=== PATIENT | male | born 1955 | race Caucasian/White ===

== ENCOUNTER → 2020-05-14 10:14 | Outpatient (CLI) | payer MEDICARE ==
--- NOTE | ~2020-05-14 | EC ---
PATIENT:HELGA DAVIS DATE OF SERVICE: 05/14/20 SEX: M MEDICAL RECORD: [id number] DATE OF : [birth year] [facility] AGE OF PATIENT: 64 ADMISSION DATE: 05/14/20 REFERRING PHYSICIAN: INTERPRETING PHYSICIAN: SAROJ ROY MD ECHOCARDIOGRAM REPORT ECHO CHARGES 4 ECHO COMPLETE Date: 05/14/20 CLINICAL DIAGNOSIS: CAD/ASSESS EF/MITRAL REGURG ECHOCARDIOGRAPHIC MEASUREMENTS (adult normal given) AC root (d.<3.7cm) 3.5 cm LV Septum d (<1.2 cm> 1.4 cm Valve Excursion 1.3 cm LV Septum (systole) 1.6 cm Left Atria (s.<4.0cm> 3.5 cm LVPW d(<1.2cm) 1.4 cm RV (d.<2.3cm) 3.6 cm LVPW (sytole) 1.8 cm LV diastole(<5.6CM) 3.6 cm MV E-F(>70mm/sec) cm LV systole 2.4 cm LVOT Diameter 1.9 cm MV exc.(>10mm) 1.2 cm Est.ejection fraction (50-75%) % DOPPLER: LVIT cm/sec A 88.0 cm/sec E 78.0 cm/sec LA cm/sec RVSP 29 mmHg LVOT 108 cm/sec AOP1/2T m/s Asc. Ao 147 cm/sec RVOT 92 cm/sec RA cm/sec PA 122 cm/sec AV Gradient Peak 8.63 mmHg AV Mean 4.36 mmHg AV Area 1.9 cm MV Gradient Peak 2.79 mmHg MV Mean 1.08 mmHg MV Area cm COMMENTS: Nurse Coordinator: 2 SHIN BAH Community Development Planner: 3 Dr. Parker TAPE# PACS Pericardial Effusion N DATE OF SERVICE: Adequate 2D, color-flow imaging, spectral Doppler, and M-Mode Mild LVH. LV internal dimensions are normal. Wall motion is normal. EF is greater than or equal to 55%. Aortic valve is tricuspid with good valve excursion. Left atrium is normal. Mitral valve shows no prolapse. Trace MR. Right side is grossly normal. Trace TR. 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
== END | disposition home or self-care (01) ==
LOC: D.HCCECHO 10:14
PROVIDERS: ATTEND Internal Medicine Interventional Cardiology
DX: I25.10 Atherosclerotic heart disease of native coronary artery without angina pectoris (principal)